=== PATIENT | male | born 1950 | race Caucasian/White ===

== ENCOUNTER → 2017-02-04 | Outpatient (CLI) | payer BC, OTHER ==
[2017-02-04 12:20] LABS: HEMATOCRIT 44.5 % (42-52); MEAN CELL VOLUME 87.1 fL (80-100); MEAN CORPUSCULAR HEMOGLOBIN 30.9 pg (25-34); MEAN CORPUSCULAR HGB CONC 35.5 g/dl (32-36); PLATELET COUNT 205 K/uL (130-400); RED BLOOD COUNT 5.11 M/uL (4.7-6.1); WHITE BLOOD COUNT 7.16 K/uL (4.8-10.8)
[2017-02-04 13:11] LABS: ALT/SGPT 23 U/L (12-78); AST/SGOT 17 U/L (15-37); BLOOD UREA NITROGEN 20 mg/dl (7-18); BUN/CREATININE RATIO 20.4 (10-20); CALCIUM 8.9 mg/dl (8.5-10.1); CARBON DIOXIDE 26 mmol/L (21-32); CHLORIDE 109 mmol/L (98-107); CREATININE 0.97 mg/dl (0.60-1.40); GLUCOSE 83 mg/dl (70-99); POTASSIUM 3.7 mmol/L (3.5-5.1); SODIUM 144 mmol/L (136-145)
[2017-02-04 13:16] LABS: ALB/GLOB RATIO 1.2 (0.9-2); ALKALINE PHOSPHATASE 74 U/L (45-117); CHOLESTEROL 156 mg/dl (0-200); CHOLESTEROL/HDL RATIO 3.4; HDL CHOLESTEROL 46 mg/dl; LDL CHOLESTEROL CALCULATED 81 mg/dl; TRIGLYCERIDES 145 mg/dl (0-150); VERY LOW DENSITY LIPOPROT CALC 29 mg/dl
== END | disposition home or self-care (01) ==
LOC: C.LAB1850 11:05
PROVIDERS: ATTEND Physician Assistant
DX: Z00.00 Encounter for general adult medical examination without abnormal findings (principal)

== ENCOUNTER → 2017-09-20 | Outpatient (CLI) | payer BC, OTHER ==
--- NOTE | 2017-09-20 13:00 | DIAGNOSTIC IMAGING REPORT ---
ULTRASOUND RIGHT GROIN NONVASCULAR CLINICAL HISTORY: Inguinal hernia. COMPARISON STUDY: Abdominal CT dated 08/02/2009. FINDINGS: Real-time grayscale sonography of the right groin is performed to assess for inguinal hernia. There is a reducible fat-containing right inguinal hernia. Bowel is suspected within the hernia sac. No inguinal adenopathy is seen. IMPRESSION: 1. There is a reducible fat-containing right inguinal hernia. 2. Bowel is suspected within the hernia sac. Electronically signed by: Sage Martínez M.D. 09/20/2017 12:59 PM Dictated Date/Time: 09/20/2017 12:58 PM
== END | disposition home or self-care (01) ==
LOC: C.ULTRBC 10:36
PROVIDERS: ATTEND Physician Assistant
DX: K40.90 Unilateral inguinal hernia, without obstruction or gangrene, not specified as recurrent (principal)

== ENCOUNTER → 2017-11-02 | Outpatient (CLI) | payer OTHER ==
[~2017-11-02] MED LIST: HYDR-5688 PO
== END | disposition home or self-care (01) ==
LOC: C.CPL 15:59
PROVIDERS: ATTEND Surgery
DX: K40.90 Unilateral inguinal hernia, without obstruction or gangrene, not specified as recurrent (principal)

== ENCOUNTER → 2017-11-08 | Day surgery (SDC) | payer OTHER ==
[2017-10-18 08:41] VITALS: Ht 165.1 cm; Wt 68.2 kg
[~2017-11-08] VITALS: Ht 165.1 cm; Wt 68.2 kg
[~2017-11-08] MED LIST changes: +LIDOCAINE HCL 2% 2 ML VIAL (20MG/ML) ONE; +PROPOFOL IV EMULSION 10 MG/ML 20 ML VIAL IV ONE; +SODIUM CHLORIDE 0.9% 500ML 500 ML IV ONE
--- NOTE | 2017-11-08 10:29 | Endo History and Physical ---
History & Physical Date of Service: Nov 08, 2017. Chief Complaint: Dysphagia, Weight loss Referring Physician: Dr. Andre History of Present Illness 67 yo CM who presents for EGD secondary to Dysphagia and weight loss. Past Surgical History Hx Cardiac Surgery: No Hx Internal Defibrillator: No Hx Pacemaker: No Hx Abdominal Surgery: Yes (LT INGUINAL HERNIA REPAIR) Hx of Implantable Prosthesis: No Hx Post-Op Nausea and Vomiting: No Hx Cancer Surgery: No Hx Thoracic Surgery: No Hx Orthopedic: No Hx Urinary Tract Surgery: No Family History None Social History Smoking Status: Never Smoker Hx Substance Use: No Hx Alcohol Use: No Allergies Coded Allergies: No Known Allergies (Unverified , 10/18/17) Current Medications Reported Home Medications Medications Dose Route/Sig Max Daily Dose Days Date Category No Active Prescriptions or Reported Medications Rx Vital Signs Weight (Kilograms): 68.18 Height (Feet): 5 Height (Inches): 5 Physical Exam General Appearance: WD/WN, no apparent distress Respiratory/Chest: Auscultation: breath sounds normal Cardiovascular: Heart Auscultation: RRR Abdomen: Bowel Sounds: normal Inspection & Palpation: soft, non-distended, no tenderness, guarding & rebound Assessment and Plan Assessment: 67 yo CM who presents for EGD secondary to Dysphagia and weight loss. Plan: Proceed with EGD.
--- NOTE | 2017-11-08 11:44 | Discharge Instructions ---
Endoscopy Patient Instructions Date / Procedure(s) Performed Nov 08, 2017. Colonoscopy Allergy Information Coded Allergies: No Known Allergies (Unverified , 10/18/17) Discharge Date / Findings Nov 08, 2017. Normal colonoscopy Medication Instructions OK to resume all medications today as prescribed Reported Home Medications Medications Dose Route/Sig Max Daily Dose Days Date Category No Active Prescriptions or Reported Medications Rx Provider Instructions Activity Restrictions - No exercising or heavy lifting for 24 hours. - Do not drink alcohol the day of the procedure. - Do not drive a car or operate machinery until the day after the procedure. - Do not make any important decisions or sign important papers in 24 hours after the procedure. Following Day: - Return to full activity which may include returning to work/school. Diet Start your diet with liquids and light foods (jello, soup, juice, toast). Then eat your usual diet if not nauseated. Treatment For Common After Affects For mild abdominal pain, bloating, or excessive gas: - Rest - Eat lightly - Lie on right side Follow-Up Information Follow-up with Liang Andre as scheduled Anesthesia Information What You Should Know You have had a procedure that required some medicine to reduce anxiety and discomfort. This treatment is called moderate sedation. After receiving the treatment, you may be sleepy, but you will be able to breathe on your own. The effects of the treatment may last for several hours. Follow these instructions along with Activity/Diet recommendations noted above: * Do NOT do anything where dizziness or clumsiness would be dangerous. * Rest quietly at home today, then you can be up and about tomorrow. * Have a responsible person stay with you the rest of today. * You may have had an I.V. today. If so, you may take the dressing off later today. Recommendations Call your doctor if: * Trouble breathing * Continuous vomiting for more than 24 hours * Temperature above 101 degrees * Severe abdominal pain or bloating * Pain not relieved by pain medicine ordered * There is increased drainage or redness from any incision * A large amount of rectal bleeding greater than 2-3 tablespoons. (If you had a polyp/s removed or have hemorrhoids, a small amount of blood - from the rectum is to be expected.) * You have any unanswered questions or concerns. IN THE EVENT OF A SERIOUS EMERGENCY, GO TO THE NEAREST EMERGENCY ROOM Your discharge instructions were prepared by provider Ponce Calle. Patient Instructions Signature Page Beny Copeland Patient (or Guardian) Signature/Date: I have read and understand the instructions given to me by my caregivers. Caregiver/RN/Doctor Signature/Date: The above-named patient and/or guardian has received patient instructions on this date. + Original Patient Signature Page (only) stays with chart. Please make copy for patient.
--- NOTE | 2017-11-08 11:48 | GI REPORT ---
Procedure Date: 11/08/2017 11:08 AM Procedure: Colonoscopy Indications: Screening for colorectal malignant neoplasm Medicines: Monitored Anesthesia Care Complications: No immediate complications. Estimated Blood Loss: Estimated blood loss: none. Procedure: Pre-Anesthesia Assessment: - Prior to the procedure, a History and Physical was performed, and patient medications and allergies were reviewed. The patient's tolerance of previous anesthesia was also reviewed. The risks and benefits of the procedure and the sedation options and risks were discussed with the patient. All questions were answered, and informed consent was obtained. Prior Anticoagulants: The patient has taken no previous anticoagulant or antiplatelet agents. ASA Grade Assessment: I - A normal, healthy patient. After reviewing the risks and benefits, the patient was deemed in satisfactory condition to undergo the procedure. After I obtained informed consent, the scope was passed under direct vision. Throughout the procedure, the patient's blood pressure, pulse, and oxygen saturations were monitored continuously. The colonoscopy was performed without difficulty. The patient tolerated the procedure well. The quality of the bowel preparation was good. The terminal ileum, ileocecal valve, appendiceal orifice, and rectum were photographed. The scope was introduced through the anus and advanced to the terminal ileum. Findings: The perianal and digital rectal examinations were normal. The colon (entire examined portion) appeared normal. Impression: - The entire examined colon is normal. - No specimens collected. Recommendation: - Resume previous diet. - Continue present medications. - Repeat colonoscopy in 10 years for surveillance. - Return to primary care physician as previously scheduled. Ponce Calle, DO 11/08/2017 11:48:00 AM This report has been signed electronically. Note Initiated On: 11/08/2017 11:08 AM I attest to the content of the Intraoperative Record and orders documented therein, exceptions below
[2017-11-08 12:12] VITALS: BP 138/83; PULSE 62; O2SAT 98
--- NOTE | 2017-11-08 12:23 | Anesthesiology Progress Note ---
Anesthesia Post Op Note Date & Time Nov 08, 2017 at 12:22 Vital Signs Pain Intensity: 0 Vital Signs Past 12 Hours Date Time Temp Pulse Resp B/P (MAP) Pulse Ox O2 Delivery O2 Flow Rate FiO2 11/08/17 12:12 62 16 138/83 (101) 98 Room Air 11/08/17 11:57 66 16 114/63 (80) 96 Room Air 11/08/17 11:42 66 16 84/46 (59) 95 Room Air 11/08/17 10:29 36.6 68 18 147/71 (96) 98 Room Air Notes Mental Status: alert / awake / arousable, participated in evaluation Pt Amnestic to Procedure: Yes Nausea / Vomiting: adequately controlled Pain: adequately controlled Airway Patency, RR, SpO2: stable & adequate BP & HR: stable & adequate Hydration State: stable & adequate Anesthetic Complications: no major complications apparent
== END | disposition home or self-care (01) ==
LOC: C.GI 10:16
PROVIDERS: ATTEND Internal Medicine
DX: Z12.11 Encounter for screening for malignant neoplasm of colon (principal); R01.1 Cardiac murmur, unspecified

== ENCOUNTER → 2017-11-09 | Day surgery (SDC) | payer OTHER ==
[2017-10-18 08:52] VITALS: Ht 165.1 cm; Wt 68.2 kg
[~2017-11-09] VITALS: Ht 165.1 cm; Wt 68.2 kg
[~2017-11-09] MED LIST changes: +ATROPINE SULFATE 0.1 MG/ML 5ML SYR IV PRN; +BUPIVACAINE/EPINEPHRINE 0.5% MPF 1:200,000 30 ML VIAL ONE; +CEFAZOLIN 2000MG IV PUSH 10 ML IV SCH; +EpHEDrine SULFATE INJ 50 MG/ML AMP IV PRN; +EpHEDrine SULFATE INJ 50 MG/ML AMP ONE; +FENTANYL CITRATE INJ 50 MCG/1 ML 2 ML VIAL IV PRN; +FENTANYL CITRATE INJ 50 MCG/1 ML 2 ML VIAL ONE; +HYDROCODONE/ACETAMOPHEN 5/325MG TAB PO PRN; +MIDAZOLAM HCL 1 MG/ML 2ML VIAL ONE; +ONDANSETRON INJ 2 MG/ML 2 ML VIAL IV PRN; +ONDANSETRON INJ 2 MG/ML 2 ML VIAL ONE; +SODIUM CHLORIDE 0.9% 1000ML 1,000 ML IV SCH; -SODIUM CHLORIDE 0.9% 500ML 500 ML IV ONE
[2017-11-09] MEDS: LACTATED RINGER'S 1000ML 1,000 ML IV SCH ×2 (06:42→08:56)
--- NOTE | 2017-11-09 06:57 | History and Physical ---
History & Physical Date Nov 09, 2017. History of Present Illness The patient is a 67 year old male with complaints of a right inguinal bulge/ discomfort very similar to his prior left inguinal hernia. he is able to self reduce it when lying down. Past Medical/Surgical History Medical Problems: (1) Kidney stone Additional History Hepatic Disease: No Endocrine Disorder: No Kidney Disease: Yes (urinary calculous) Hypertension: No Heart Disease: No Bleeding Tendencies: No Infectious Diseases: No Allergies Coded Allergies: No Known Allergies (Unverified , 11/09/17) Home Medications No Active Prescriptions or Reported Meds Physical Examination Skin: warm/dry Eyes: normal inspection, EOMI ENT: normal ENT inspection Head: normocephalic Neck: supple, no adenopathy Respiratory/Chest: no respiratory distress Cardiovascular: regular rate, rhythm Abdomen / GI: normal bowel sounds, + pertinent finding (+right inguinal hernia. reducible. ) Genitourinary - Male: normal male genitalia Neurologic/Psych: alert, oriented x 3 Diagnosis right inguinal hernia Plan of Treatment rec open repair with mesh discussed options/risks ( bleeding/infection/dvt/pe/mi/injury to another organ, chronic pain, infection of mesh requiring explant etc..) questions answered will proceed with open right inguinal hernia repair with mesh.
--- NOTE | 2017-11-09 07:59 | [facility] Post Operative Brief Note ---
Immediate Operative Summary Operative Date Nov 09, 2017. Pre-Operative Diagnosis Right Inguinal hernia Post-Operative Diagnosis Same as pre-op Procedure(s) Performed Right Inguinal Hernia Open Repair With Mesh ( plug and patch) Surgeon Kitchen Steward Surgeon(s) Álvaro PIERRE Estimated Blood Loss 5 cc Findings direct and indirect inguinal hernias Specimens none Anesthesia LMA Complication(s) None Disposition Recovery Room / PACU
--- NOTE | 2017-11-09 08:18 | Discharge Instructions-SurgCtr ---
Discharge Instructions Date of Service Nov 09, 2017. Visit Reason for Visit: Right Inguinal Hernia Discharge Discharge Diagnosis / Problem: Right Inguinal Hernia Discharge Goals Goal(s): Decrease discomfort, Improve function Activity Recommendations Activity Limitations: as noted below Lifting Limitations: no more than 10 pounds Exercise/Sports Limitations: until after follow-up appointment May Resume Sexual Activity: after follow-up appointment Shower/Bathe: tomorrow Driving or Machine Use: resume 1 day after discharge Anesthesia . Post Anesthesia Instructions: If you have had General Anesthesia or IV Sedation: * Do not drive today. * Resume driving when surgeon permits. * Do not make important decisions or sign legal documents today. * Call surgeon for: 1. Temperature elevations greater than 101 degrees F. 2. Uncontrollable pain. 3. Excessive bleeding. 4. Persistent nausea and vomiting. 5. Medication intolerance (nausea, vomiting or rash). * For nausea and vomiting use only clear liquids such as: tea, soda, bouillon until nausea subsides, then gradually increase diet as tolerated. * If you have any concerns or questions, call your surgeon's office. If physician is unavailable and it is an emergency, call 911 or go to the nearest emergency room. . Instructions / Follow-Up Instructions / Follow-Up Please follow-up with Dr. Nash in the General Surgery [facility] in 1-2 weeks. Please call the office at [phone] to make an appointment if you do not have one already. Please call the office with any questions or concerns. Diet Recommendations Home Diet: no limitations Procedures Procedures Performed: Right Inguinal Hernia Open Repair With Mesh ( plug and patch) Pending Studies Studies pending at discharge: no Medical Emergencies . Who to Call and When: Medical Emergencies: If at any time you feel your situation is an emergency, please call 911 immediately. . Non-Emergent Contact Non-Emergency issues call your: Primary Care Provider, Surgeon Call Non-Emergent contact if: temperature is above 101.5, your pain is not controlled, wound has increased drainage, wound has increased redness . . "Provider Documentation" section prepared by Lucie Simons. . [place] Drug Monitoring Program Search Results: patient reviewed within database, no issues identified
--- NOTE | 2017-11-09 08:28 | [facility] Operative Report ---
Operative Report Operative Date Nov 09, 2017. Pre-Operative Diagnosis Right Inguinal hernia Post-Operative Diagnosis direct and indirect [facility] Procedure(s) Performed Right Inguinal Hernia Open Repair With Mesh ( plug and patch) Surgeon Rapier Insertion Loom Fixer Surgeon(s) Álvaro PIERRE Estimated Blood Loss 5ML Findings large direct and indirect inguinal hernia Specimens None Anesthesia LMA Complication(s) None Disposition Recovery Room / PACU Description of Procedure After informed consent was obtained the patient was taken to the operating room and placed in a supine position. After successful placement of the laryngeal mask airway the right lower groin was sterilely prepped and draped in usual fashion. I began by making an inguinal incision with a 15 blade scalpel and carried this down through the soft tissue using electrocautery. The external oblique aponeurosis was skeletonized and a small incision made in it with a fresh scalpel. We extended this distally through the external ring as well as for several centimeters proximally with a Metzenbaum scissor. Once in the inguinal canal there was an obvious direct hernia present. I was able to readily identify the ilioinguinal nerve and sharply lyse this to help prevent future nerve entrapment. Once we did this I bluntly dissected the cord and cord structures away from surrounding tissue using primarily blunt dissection. I was able to elevate the cord structures off the pubic bone again with gentle traction with a Avoca clamp as well as a blunt finger. We placed a Avery a drain drain around it to help manipulate it. Once we elevated the cord structures the direct hernia was very obvious and very large. It was easily reducible. We had difficulty keeping it reduced however. I therefore decided to use a polypropylene plug and patch technique. I placed a polypropylene plug into the defect which was very discrete defect. I secured it to surrounding musculature using 0 Ethibond in simple interrupted fashion. I secured it to the midline musculature as well as the shelving portion of Poupart ligament. Once this was done I could then inspect the cord and cord structures. There was also a very large indirect hernia sac. We dissected this free using traction and small amounts electrocautery back to its neck. We are then able to reduce this as well. I then used a keyhole polypropylene mesh as an onlay. I secured it distally to Josafat's ligament laterally along the shelving portion of Poupart's ligament and medially along the midline musculature. The "arms" were wrapped around behind the cord and cord structures and secured underlying muscle. The mesh was tension-free regarding the cord structures. There was adequate hemostasis. We placed Marcaine around the periphery of the mesh to help with postoperative analgesia. Thorough irrigation was performed. The external oblique aponeurosis was closed using 2-0 Vicryl in a running fashion. Soft tissue was irrigated and closed using 3-0 Vicryl and 4-0 Monocryl for the skin. Some additional Marcaine was injected around the area for postoperative analgesia and skin glue used as a dressing. The patient was awaken extubated and transferred recovery in stable condition My physician's media assistant was present throughout the entire case. She helped prepped the patient. She helped with retraction and exposure throughout the entire dissection. She helped with wound closure as well as dressing placement I attest to the content of the Intraoperative Record and any orders documented therein. Any exceptions are noted below.
--- NOTE | 2017-11-09 09:03 | Anesthesia Progress Nt - [facility] ---
Anesthesia Post Op Note Date & Time Nov 09, 2017 at 09:02 Vital Signs Pain Intensity: 2 Vital Signs Past 12 Hours Date Time Temp Pulse Resp B/P (MAP) Pulse Ox O2 Delivery O2 Flow Rate FiO2 11/09/17 08:56 141/79 11/09/17 08:54 62 13 11/09/17 08:54 62 13 95 11/09/17 08:51 142/80 11/09/17 08:49 60 13 95 11/09/17 08:49 62 13 11/09/17 08:46 145/81 11/09/17 08:44 63 10 11/09/17 08:44 62 10 95 11/09/17 08:43 66 16 11/09/17 08:43 66 16 96 11/09/17 08:43 36.7 67 13 145/86 96 Room Air 11/09/17 08:41 145/86 11/09/17 08:38 73 20 97 11/09/17 08:38 73 20 11/09/17 08:36 143/83 11/09/17 08:33 74 18 99 11/09/17 08:33 74 18 11/09/17 08:31 143/77 11/09/17 08:28 70 13 11/09/17 08:28 72 13 99 11/09/17 08:26 145/79 11/09/17 08:23 68 8 11/09/17 08:23 69 8 100 11/09/17 08:21 150/80 11/09/17 08:18 74 14 11/09/17 08:18 75 14 100 11/09/17 08:16 152/83 11/09/17 08:14 148/80 11/09/17 08:13 73 11/09/17 08:13 36.6 73 20 148/80 96 Mask 6 11/09/17 08:13 73 96 11/09/17 06:25 36.4 61 16 136/70 (92) 98 Room Air Notes Mental Status: alert / awake / arousable, participated in evaluation Pt Amnestic to Procedure: Yes Nausea / Vomiting: adequately controlled Pain: adequately controlled Airway Patency, RR, SpO2: stable & adequate BP & HR: stable & adequate Hydration State: stable & adequate Anesthetic Complications: no major complications apparent
[2017-11-09 09:10] VITALS: TEMP 36.4
[2017-11-09 09:42] VITALS: BP 163/70; PULSE 61; O2SAT 96
== END | disposition home or self-care (01) ==
LOC: X.SURG 06:17
PROVIDERS: ATTEND Surgery
DX: K40.90 Unilateral inguinal hernia, without obstruction or gangrene, not specified as recurrent (principal); Z98.41 Cataract extraction status, right eye; Z98.890 Other specified postprocedural states

== ENCOUNTER → 2018-01-27 | Outpatient (CLI) | payer OTHER ==
[2018-01-27 11:04] LABS: BASO % 0.8 %; BASO ABS # 0.06 K/uL (0-0.2); EOS % 1.5 %; EOS ABS # 0.11 K/uL (0-0.5); HEMATOCRIT 44.7 % (42-52); HEMOGLOBIN 15.3 g/dL (14.0-18.0); IG# 0.02 K/uL (0.00-0.02); LYMPH % 28.8 %; LYMPH ABS # 2.07 K/uL (1.2-3.4); MEAN CELL VOLUME 88.2 fL (80-100); MEAN CORPUSCULAR HEMOGLOBIN 30.2 pg (25-34); MEAN CORPUSCULAR HGB CONC 34.2 g/dl (32-36); MEAN PLATELET VOLUME 9.5 fL (7.4-10.4); MONO % 6.5 %; MONO ABS # 0.47 K/uL (0.11-0.59); NEUT % 62.1 %; NEUT ABS # 4.45 K/uL (1.4-6.5); PLATELET COUNT 207 K/uL (130-400); RED CELL DISTRIBUTION WIDTH CV 13.2 % (11.5-14.5); RED CELL DISTRIBUTION WIDTH SD 42.8 fL (36.4-46.3); WHITE BLOOD COUNT 7.18 K/uL (4.8-10.8)
[2018-01-27 11:16] LABS: BLOOD UREA NITROGEN 18 mg/dl (7-18); CALCIUM 8.8 mg/dl (8.5-10.1); CARBON DIOXIDE 27 mmol/L (21-32); CREATININE 1.11 mg/dl (0.60-1.40); GLUCOSE 85 mg/dl (70-99); POTASSIUM 3.9 mmol/L (3.5-5.1); SODIUM 142 mmol/L (136-145)
== END | disposition home or self-care (01) ==
LOC: C.LAB1850 09:13
PROVIDERS: ATTEND Nurse Practitioner Adult Health
DX: R55 Syncope and collapse (principal)